=== PATIENT | male | born 1975 | race Caucasian/White ===

== ENCOUNTER 2018-03-06 21:45 | Emergency (ER) | payer OTHER ==
[2018-03-06] MEDS ORDERED: Take Home: Cyclobenzaprine 10 MG Tab, 4 Tab Pack PO ONE (22:11)
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
== END 2018-03-06 22:24 | disposition home or self-care (01) ==
LOC: VM.ED 21:45
DX: M62.9 Disorder of muscle, unspecified (principal); Z88.5 Allergy status to narcotic agent; Z79.82 Long term (current) use of aspirin; Z86.73 Personal history of transient ischemic attack (TIA), and cerebral infarction without residual deficits
CPT/HCPCS: 99284; A9270-GY